=== PATIENT | male | born 1960 | race Caucasian/White ===

== ENCOUNTER → 2016-11-10 | Outpatient (CLI) | payer BC, OTHER ==
--- NOTE | ~2016-11-10 | MR84 ---
[facility] A Service of [facility] RADIOLOGY TEXT RESULTS PATIENT: JEFF POWELL LOCATION: [facility] : 58 UNIT #: [id number] AGE: [address]: Danette Sloan MD SEX: M ORDER DR: [id number] [address] [id number] O MR#: [id number] Acc #: [id number] NAME: JEFF POWELL : 1960 SEX: M STUDY DATE/TIME: 11/10/2016 12:00 UNIT: [facility] ROOM: STUDY DESCRIPTION: MR Hip Wo Contrast Rt Attending Physician: Danette Sloan M.D. Referring Physician: Danette Sloan M.D. Ordering Physician: Danette Sloan M.D. Primary Care Physician: Danette Sloan M.D. MRI CENTER REPORT This report is preliminary unless electronic signature is present. EXAM MRI pelvis and hips, 11/10/2016 HISTORY Order states mass of right hip region. History sheet states no known injury and no related surgery. No palpable soft tissue mass. Pain especially when sitting down with trouble crossing the legs or bending over for 4-1/2 months. Saw a chiropractor who verbalized to the patient that x-ray showed a possible old healed fracture versus a lytic lesion. History of high grade colon dysplasia. COMPARISON Office notes [facility] 11/05/2016. No prior radiographs or reports are available for correlation. FINDINGS The hips demonstrate no effusion, fracture, osteonecrosis, or visible arthritic change. Signal in the region of the anterior superior acetabular labrum on the right may reflect labral degeneration or small tear. This may be of no clinical significance. There is no paralabral cyst. There is a sizeable chronic ossification adjacent to the anterior inferior iliac spine on the right near the origin of the direct head of the rectus femoris. 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 A portion of the adductor kelsie muscle origin on the left appears partially avulsed from the inferior aspect of the left inferior pubic ramus. This is opposite to the side of patient reported symptoms. Correlate for clinical significance. [facility]. [facility] A Service of [facility] RADIOLOGY TEXT RESULTS PATIENT: JEFF POWELL LOCATION: [facility] : 58 UNIT #: [id number] AGE: [address]: Danette Sloan MD SEX: M ORDER DR: There is mild pubic symphysis subarticular marrow edema and mild articular irregularity, likely related to mild arthritic change. The remainder of the bony pelvis, sacrum, and SI joints are unremarkable. Minimal SI joint subarticular marrow edema inferiorly is nonspecific. No internal pelvic pathology, mass, adenopathy, or hernia is identified. Lower lumbar facet arthrosis is noted. There is no adenopathy. IMPRESSION 1. No prior radiographs or reports are available for correlation. 2. 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 The direct head of the right rectus femoris tendon remains attached to the avulsed ossicle. There is no marrow edema. 3. Partial avulsion of the adductor kelsie origin on the left along the inferior aspect of the left inferior pubis ramus. This is opposite the reported right-sided symptoms. 4. No fracture, avascular necrosis, or hip arthrosis is noted. 5. 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 1. Dictated by... Yusra Everett M.D. THIS IS AN ELECTRONICALLY VERIFIED REPORT Yusra Everett M.D. at 11/11/2016 9:09 AM Alicia TD: 11/10/2016 15:20 JOB #: [id number] MRI CENTER REPORT Page 1 of 1
== END | disposition home or self-care (01) ==
LOC: SMRI 11:17
DX: R22.41 Localized swelling, mass and lump, right lower limb (principal)
CPT/HCPCS: 73721